=== PATIENT | female | born 1940 | race Caucasian/White ===

== ENCOUNTER → 2018-06-25 | Outpatient (CLI) | payer MEDICARE ==
[~2018-06-25] MED LIST: ALBUTEROL SULFATE 0.083% 2.5 MG/3 ML INH IH ONE; DEXAMETHASONE SOD PHOSPHATE 10MG/ML 1ML VIAL ONE; ESMOLOL HCL 10 MG/ML 10 ML VIAL ONE; FENTANYL CITRATE PF 50 MCG/1 ML 5ML AMP IV ONE; MIDAZOLAM HCL 1 MG/ML 2ML VIAL ONE; ONDANSETRON HCL MDV 20ML 2 MG/ML VIAL ONE; PROPOFOL 10 MG/ML 20ML VIAL IV ONE; ROCURONIUM 10MG/1ML SYR 10 MG/ML ML ONE
== END | disposition home or self-care (01) ==
LOC: RESP 10:26
PROVIDERS: ATTEND Internal Medicine Cardiovascular Disease
DX: R06.00 Dyspnea, unspecified (principal); G47.33 Obstructive sleep apnea (adult) (pediatric); R06.02 Shortness of breath
CPT/HCPCS: 94060; 94727; 94729; J1100; J2250; J2704; J3010; J3490

== ENCOUNTER → 2018-07-02 | Outpatient (CLI) | payer MEDICARE | END | disposition home or self-care (01) | LOC: SHCH 16:30 → EDUNIT# 16:30 | PROVIDERS: ATTEND Internal Medicine Cardiovascular Disease | DX: R06.00 Dyspnea, unspecified (principal); R94.31 Abnormal electrocardiogram [ECG] [EKG] | CPT/HCPCS: 93306 ==

== ENCOUNTER → 2018-07-07 | Outpatient (CLI) | payer MEDICARE ==
[~2018-07-07] MED LIST changes: -ALBUTEROL SULFATE 0.083% 2.5 MG/3 ML INH IH ONE; -DEXAMETHASONE SOD PHOSPHATE 10MG/ML 1ML VIAL ONE; -ESMOLOL HCL 10 MG/ML 10 ML VIAL ONE; -FENTANYL CITRATE PF 50 MCG/1 ML 5ML AMP IV ONE; -MIDAZOLAM HCL 1 MG/ML 2ML VIAL ONE; -ONDANSETRON HCL MDV 20ML 2 MG/ML VIAL ONE; -PROPOFOL 10 MG/ML 20ML VIAL IV ONE; +REGADENOSON 0.4 MG/5 ML PF SYG IVP SCH; -ROCURONIUM 10MG/1ML SYR 10 MG/ML ML ONE
== END | disposition home or self-care (01) ==
LOC: SHCH 08:26 → EDUNIT# 08:30
PROVIDERS: ATTEND Internal Medicine Cardiovascular Disease
DX: R94.31 Abnormal electrocardiogram [ECG] [EKG] (principal); R06.00 Dyspnea, unspecified
CPT/HCPCS: 78452; 93017; 96374; A9500 ×2; J2785

== ENCOUNTER → 2021-06-28 | Outpatient (CLI) | payer MEDICARE | END | disposition home or self-care (01) | LOC: RAH 12:28 | PROVIDERS: ATTEND Orthopaedic Surgery | DX: M17.11 Unilateral primary osteoarthritis, right knee (principal); M25.761 Osteophyte, right knee; M25.461 Effusion, right knee; M25.861 Other specified joint disorders, right knee | CPT/HCPCS: 73700 ==

== ENCOUNTER 2021-08-01 07:14 | Observation (INO) | payer MEDICARE ==
[2021-07-26 11:17] LABS: BASOPHILS % (AUTO) 1.6 % (0.0-5.0); EOSINOPHILS % (AUTO) 3.7 % (0.0-8.0); LYMPHOCYTES % (AUTO) 26.6 % (21.0-51.0); MEAN CORPUSCULAR HEMOGLOBIN 31.2 pg (27.0-33.0); MEAN CORPUSCULAR VOLUME 94.5 fL (79-99); MONOCYTES % (AUTO) 8.3 % (3.0-13.0); NEUTROPHILS % (AUTO) 59.6 % (40.0-77.0); PLATELET COUNT (AUTO) 190 K/uL (130-400); RED BLOOD CELL COUNT(AUTO) 4.87 MIL/uL (4.00-5.50); RED CELL DISTRIBUTION WIDTH 12.8 % (11.0-15.5); WHITE BLOOD COUNT (AUTO) 8.1 K/uL (4.8-10.8)
[2021-07-26 11:22] LABS: CREATININE 0.8 mg/dL (0.5-1.5); POTASSIUM 4.3 mmol/L (3.5-5.1)
[2021-07-26 11:46] LABS: PROTHROMBIN TIME 10.9 SEC (9.6-11.6)
[2021-07-26 11:47] LABS: PARTIAL THROMBOPLASTIN TIME 29.5 SEC (26.3-35.5)
[~2021-08-01] VITALS: Ht 160 cm; Wt 93.5 kg
[2021-08-01] VITALS (25 sets, daily range): BP systolic 100–164; BP diastolic 52–93
[~2021-08-01 07:14] MED LIST changes: +LISI5TAB21 PO; +METO25TA3 PO; +PANT20TA PO; +PARO-37 PO; -REGADENOSON 0.4 MG/5 ML PF SYG IVP SCH
[2021-08-01] MEDS ORDERED: CEFAZOLIN SODIUM 1 GM VIAL IVP ONE (08:00)
[2021-08-01] MEDS: LACTATED RINGERS 1000ML 1,000 ML IV SCH ×3 (08:45→14:01)
[2021-08-01] MEDS ORDERED: ONDANSETRON 4MG INJ IVP PRN (09:30)
[2021-08-01] MEDS: ACETAMINOPHEN 500 MG TABLET PO SCH ×3 (09:30→23:33)
[2021-08-01] MEDS ORDERED: HYDROCODONE/ACETAMINOPHEN 5/325 MG TAB PO PRN (09:30)
[2021-08-01] MEDS: 0.9%NACL 1000ML 1,000 ML IV SCH ×2 (09:30→19:30)
[2021-08-01] MEDS ORDERED: TRANEXAMIC ACID 1000MG/10ML ONE (09:55)
[2021-08-01] MEDS ORDERED: FENTANYL CITRATE PF 50 MCG/1 ML 2ML VIAL ONE ×3 (10:05→12:38)
[2021-08-01] MEDS ORDERED: MIDAZOLAM HCL 1 MG/ML 2ML VIAL ONE ×2 (10:05→10:31)
[2021-08-01] MEDS ORDERED: PROPOFOL 10 MG/ML 20ML VIAL IV ONE ×2 (10:05→12:38)
[2021-08-01] MEDS ORDERED: PROPOFOL 1000 MG/100 ML 100 ML IV ONE ×2 (10:15→11:43)
[2021-08-01] MEDS ORDERED: CEFAZOLIN SODIUM 2 GM VIAL IV ONE (10:40)
[2021-08-01] MEDS ORDERED: ROCURONIUM 10MG/1ML SYR 10 MG/ML ML ONE ×2 (10:41→11:29)
[2021-08-01] MEDS ORDERED: TRANEXAMIC ACID 1000MG/10ML TP ONE (11:11)
[2021-08-01] MEDS ORDERED: ONDANSETRON 4MG INJ ONE ×2 (11:28→11:29)
[2021-08-01] MEDS ORDERED: DEXAMETHASONE SOD PHOSPHATE 10MG/ML 1ML VIAL ONE (11:37)
[2021-08-01] MEDS ORDERED: ROPIVACAINE 0.5% 5MG/ML 30ML IJ ONE (11:37)
[2021-08-01] MEDS: TRAMADOL HCL 50 MG TABLET PO SCH ×3 (12:00→23:33)
[2021-08-01] MEDS ORDERED: GLYCOPYRROLATE 1 MG/5 ML SYRINGE ONE (12:32)
[2021-08-01] MEDS ORDERED: NEOSTIGMINE 5MG/5ML SYR IV ONE (12:32)
[2021-08-01] MEDS ORDERED: MEPERIDINE-PF 25 MG/ML SYG ONE (13:34)
[2021-08-01] MEDS: CEFAZOLIN SODIUM 1 GM VIAL IVP SCH ×2 (15:47→22:00)
[2021-08-01] MEDS ORDERED: CELECOXIB 200 MG CAP ONE (19:23)
[2021-08-01] MEDS: HYDROCODONE/ACETAMINOPHEN 10/325 MG TAB PO PRN (19:24)
[2021-08-01] MEDS: CELECOXIB 200 MG CAP PO SCH (19:24)
[2021-08-01] MEDS: MORPHINE 4 MG SYG IVP PRN (20:09)
[2021-08-01] MEDS ORDERED: ASPIRIN 81 MG EC TAB PO SCH (21:00)
[2021-08-02] VITALS: BP 117/58
[2021-08-02 04:00] VITALS: BP 128/53
[2021-08-02] MEDS: 0.9%NACL 1000ML 1,000 ML IV SCH (04:33)
[2021-08-02 04:36] LABS: HEMATOCRIT 39.5 % (36-48); MEAN CORPUSCULAR HGB CONC 33.9 g/dL (32.0-36.0); MEAN CORPUSCULAR VOLUME 91.4 fL (79-99); RED BLOOD CELL COUNT(AUTO) 4.32 MIL/uL (4.00-5.50); RED CELL DISTRIBUTION WIDTH 12.5 % (11.0-15.5); WHITE BLOOD COUNT (AUTO) 13.9 K/uL (4.8-10.8)
[2021-08-02 04:55] LABS: CREATININE 0.8 mg/dL (0.5-1.5); POTASSIUM 4.3 mmol/L (3.5-5.1)
[2021-08-02] MEDS: TRAMADOL HCL 50 MG TABLET PO SCH ×3 (05:18→23:47)
[2021-08-02 08:00] VITALS: BP 130/55
[2021-08-02] MEDS: LISINOPRIL 5 MG TABLET PO SCH (08:03)
[2021-08-02] MEDS: PANTOPRAZOLE 40 MG TAB DR PO SCH (08:03)
[2021-08-02] MEDS: PAROXETINE HCL 20 MG TABLET PO SCH (08:03)
[2021-08-02] MEDS: CELECOXIB 200 MG CAP PO SCH ×2 (08:03→19:53)
[2021-08-02] MEDS: METOPROLOL SUCCINATE 50 MG TAB.SR.24H PO SCH (08:04)
[2021-08-02] MEDS: POLYETHYLENE GLYCOL 3350 17 GM POWD.PACK PO SCH (08:05)
[2021-08-02] MEDS: ENOXAPARIN SODIUM 40 MG/0.4 ML SYRINGE SQ SCH (08:05)
[2021-08-02] MEDS: MORPHINE 4 MG SYG IVP PRN (08:11)
[2021-08-02] MEDS: ACETAMINOPHEN 500 MG TABLET PO SCH (09:45)
[2021-08-02 12:00] VITALS: BP 114/54
[2021-08-02] MEDS: HYDROCODONE/ACETAMINOPHEN 10/325 MG TAB PO PRN (14:36)
[2021-08-02 16:00] VITALS: BP 110/43
[2021-08-02 19:00] VITALS: BP 92/41
[2021-08-03] VITALS: BP 130/46
[2021-08-03] MEDS: ACETAMINOPHEN 500 MG TABLET PO SCH ×3 (01:21→17:23)
[2021-08-03 04:00] VITALS: BP 127/44
[2021-08-03] MEDS: TRAMADOL HCL 50 MG TABLET PO SCH ×4 (05:42→23:05)
[2021-08-03 08:00] VITALS: BP 135/59
[2021-08-03] MEDS: CELECOXIB 200 MG CAP PO SCH ×2 (09:25→19:25)
[2021-08-03] MEDS: LISINOPRIL 5 MG TABLET PO SCH (09:25)
[2021-08-03] MEDS: POLYETHYLENE GLYCOL 3350 17 GM POWD.PACK PO SCH (09:25)
[2021-08-03] MEDS: PANTOPRAZOLE 40 MG TAB DR PO SCH (09:25)
[2021-08-03] MEDS: METOPROLOL SUCCINATE 50 MG TAB.SR.24H PO SCH (09:25)
[2021-08-03] MEDS: PAROXETINE HCL 20 MG TABLET PO SCH (09:25)
[2021-08-03] MEDS: ENOXAPARIN SODIUM 40 MG/0.4 ML SYRINGE SQ SCH (09:27)
[2021-08-03 12:00] VITALS: BP 127/56
[2021-08-03 16:00] VITALS: BP 131/72
[2021-08-03 20:00] VITALS: BP 129/58
[2021-08-04 00:02] VITALS: BP 110/47
[2021-08-04] MEDS: ACETAMINOPHEN 500 MG TABLET PO SCH ×2 (01:24→08:32)
[2021-08-04 04:00] VITALS: BP 126/69
[2021-08-04] MEDS: PANTOPRAZOLE 40 MG TAB DR PO SCH (05:22)
[2021-08-04] MEDS: TRAMADOL HCL 50 MG TABLET PO SCH ×2 (05:22→11:41)
[2021-08-04 07:00] VITALS: BP 141/57
[2021-08-04] MEDS: METOPROLOL SUCCINATE 50 MG TAB.SR.24H PO SCH (08:27)
[2021-08-04] MEDS: CELECOXIB 200 MG CAP PO SCH (08:27)
[2021-08-04] MEDS: LISINOPRIL 5 MG TABLET PO SCH (08:27)
[2021-08-04] MEDS: PAROXETINE HCL 20 MG TABLET PO SCH (08:27)
[2021-08-04] MEDS: ENOXAPARIN SODIUM 40 MG/0.4 ML SYRINGE SQ SCH (08:28)
[2021-08-04] MEDS: POLYETHYLENE GLYCOL 3350 17 GM POWD.PACK PO SCH (08:30)
[2021-08-04] MEDS ORDERED: BISACODYL 10 MG SUPP.RECT RC PRN (09:30)
[2021-08-04 11:00] VITALS: BP 144/62
== END 2021-08-04 12:22 | disposition home health service (06) ==
LOC: DAH 07:14 → DAHIP 07:15 → 4CH 14:08
PROVIDERS: ADMIT Orthopaedic Surgery; ATTEND Orthopaedic Surgery
DX: M17.11 Unilateral primary osteoarthritis, right knee (principal); Z20.822 Contact with and (suspected) exposure to COVID-19; E66.9 Obesity, unspecified; R26.89 Other abnormalities of gait and mobility; Z86.718 Personal history of other venous thrombosis and embolism; Z98.49 Cataract extraction status, unspecified eye; Z79.899 Other long term (current) drug therapy; Z98.890 Other specified postprocedural states; Z90.710 Acquired absence of both cervix and uterus; Z79.82 Long term (current) use of aspirin; Z68.36 Body mass index [BMI] 36.0-36.9, adult
CPT/HCPCS: 27447; 36415 ×2; 64445; 64447; 76942; 80048 ×2; 85025; 85027; 85610; 85730; 87635; 87641; 93005; 93971; 96372 ×3; 96374; 96375 ×2; 96376 ×2; 97039 ×5; 97116 ×5; 97161; 97530 ×5; A4215; A4222; A4223; A4600; A4649 ×4; A4663; A5120; A6260; C1776; C9803; G0168; G0378 ×68; J0690 ×4; J1100; J1650 ×4; J2175; J2250 ×2; J2270 ×2; J2405 ×3; J2704 ×4; J2710; J2795; J3010 ×3; J3490 ×3; J7030; J7120

== ENCOUNTER 2021-09-05 14:54 | Inpatient (IN) | payer MEDICARE ==
[~2021-09-05] VITALS: Ht 172.7 cm; Wt 92.7 kg
[2021-09-05 15:37] LABS: APPEARANCE,URINE Cloudy (CLEAR); BILIRUBIN,URINE Negative (NEGATIVE); COLOR,URINE Yellow (YELLOW); GLUCOSE, URINE (UA) Negative (NEGATIVE); KETONES,URINE Negative (NEGATIVE); LEUKOCYTE ESTERASE ,URINE Large (NEGATIVE); NITRATE,URINE Negative (NEGATIVE); OCCULT BLOOD,URINE Negative (NEGATIVE); PH,URINE 7.5 (5.0-8.0); PROTEIN,URINE Trace mg/dL (NEGATIVE)
[2021-09-05 15:42] LABS: BASOPHILS % (AUTO) 0.5 % (0.0-5.0); HEMATOCRIT 42.2 % (36-48); LYMPHOCYTES % (AUTO) 13.1 % (21.0-51.0); MEAN CORPUSCULAR HEMOGLOBIN 30.3 pg (27.0-33.0); MEAN CORPUSCULAR VOLUME 94.8 fL (79-99); MONOCYTES % (AUTO) 7.4 % (3.0-13.0); NEUTROPHILS % (AUTO) 75.5 % (40.0-77.0); PLATELET COUNT (AUTO) 241 K/uL (130-400); RED BLOOD CELL COUNT(AUTO) 4.45 MIL/uL (4.00-5.50); RED CELL DISTRIBUTION WIDTH 13.7 % (11.0-15.5); WHITE BLOOD COUNT (AUTO) 14.9 K/uL (4.8-10.8)
[2021-09-05 15:56] LABS: INR 0.97 (0.85-1.15); PROTHROMBIN TIME 10.6 SEC (9.6-11.6)
[2021-09-05 16:00] LABS: BACTERIA,URINE Moderate /HPF (None Seen); RBC,URINE 0-1 /HPF (0-1); SQUAMOUS EPITHELIAL CELL,UR Rare /HPF (0-2)
[2021-09-05 16:08] LABS: ALBUMIN 3.2 g/dL (3.5-5.0); BILIRUBIN,TOTAL 0.6 mg/dL (0.2-1.0); TOTAL PROTEIN, SERUM 6.7 g/dL (6.0-8.3)
[2021-09-05] MEDS ORDERED: ZOSYN 3.375GM +NS 50ML IV ONE (17:00)
[2021-09-05] MEDS ORDERED: IOHEXOL-350 75 ML VIAL IV ONE (17:09)
[2021-09-05] MEDS ORDERED: HEPARIN 25,000 UNITS/250ML D5W 250 ML IV SCH ×2 (19:00)
[2021-09-05] MEDS ORDERED: ZOLPIDEM TARTRATE 5 MG TAB PO PRN (19:00)
[2021-09-05] MEDS ORDERED: MORPHINE 4 MG SYG IV PRN (19:00)
[2021-09-05] MEDS ORDERED: ACETAMINOPHEN 325 MG TAB PO PRN (19:00)
[2021-09-05] MEDS ORDERED: MORPHINE 2 MG SYG IVP ONE (19:00)
[2021-09-05] MEDS: HEPARIN 1,000 UNIT VIAL IVP SCH ×3 (19:00→19:52)
[2021-09-05] MEDS ORDERED: HEPARIN 5,000 UNIT VIAL SQ PRN (19:00)
[2021-09-05] MEDS ORDERED: ONDANSETRON 4MG INJ IVP ONE (19:00)
[2021-09-05] MEDS ORDERED: MORPHINE 2 MG SYG ONE (19:09)
[2021-09-05] MEDS ORDERED: ONDANSETRON 4MG INJ ONE (19:09)
[2021-09-05 19:19] LABS: BASOPHILS % (AUTO) 0.7 % (0.0-5.0); EOSINOPHILS % (AUTO) 2.4 % (0.0-8.0); HEMATOCRIT 38.8 % (36-48); LYMPHOCYTES % (AUTO) 13.5 % (21.0-51.0); MEAN CORPUSCULAR HEMOGLOBIN 30.6 pg (27.0-33.0); MEAN CORPUSCULAR HGB CONC 31.2 g/dL (32.0-36.0); MEAN CORPUSCULAR VOLUME 98.2 fL (79-99); MONOCYTES % (AUTO) 8.7 % (3.0-13.0); NEUTROPHILS % (AUTO) 74.2 % (40.0-77.0); PLATELET COUNT (AUTO) 203 K/uL (130-400); RED BLOOD CELL COUNT(AUTO) 3.95 MIL/uL (4.00-5.50); RED CELL DISTRIBUTION WIDTH 13.7 % (11.0-15.5); WHITE BLOOD COUNT (AUTO) 12.9 K/uL (4.8-10.8)
[2021-09-05] MEDS: CEFTRIAXONE 1G VIAL IVP SCH (22:00)
[2021-09-05] MEDS: OSELTAMIVIR PHOSPHATE 75 MG CAP PO SCH (22:02)
[2021-09-05 23:12] VITALS: BP 131/63
[2021-09-06] MEDS: MORPHINE 2 MG SYG IV PRN ×3 (01:39→15:02)
[2021-09-06 02:38] LABS: BASOPHILS % (AUTO) 0.6 % (0.0-5.0); EOSINOPHILS % (AUTO) 2.9 % (0.0-8.0); HEMATOCRIT 38.9 % (36-48); LYMPHOCYTES % (AUTO) 17.1 % (21.0-51.0); MEAN CORPUSCULAR HEMOGLOBIN 31.2 pg (27.0-33.0); MEAN CORPUSCULAR HGB CONC 32.1 g/dL (32.0-36.0); MONOCYTES % (AUTO) 10.5 % (3.0-13.0); NEUTROPHILS % (AUTO) 68.4 % (40.0-77.0); PLATELET COUNT (AUTO) 202 K/uL (130-400); RED BLOOD CELL COUNT(AUTO) 4.01 MIL/uL (4.00-5.50); RED CELL DISTRIBUTION WIDTH 13.8 % (11.0-15.5)
[2021-09-06 02:45] LABS: PROTHROMBIN TIME 10.9 SEC (9.6-11.6)
[2021-09-06 02:48] LABS: CREATININE 0.9 mg/dL (0.5-1.5); MAGNESIUM 1.8 mg/dL (1.80-2.40); PHOSPHORUS 3.2 mg/dL (2.5-4.9); POTASSIUM 4.1 mmol/L (3.5-5.1)
[2021-09-06 03:05] LABS: PARTIAL THROMBOPLASTIN TIME > 139.0 SEC (26.3-35.5)
[2021-09-06 03:26] VITALS: BP 120/72
[2021-09-06 07:00] VITALS: BP 153/71
[2021-09-06] MEDS: OSELTAMIVIR PHOSPHATE 75 MG CAP PO SCH ×2 (08:21→21:17)
[2021-09-06 08:33] LABS: INR 0.97 (0.85-1.15); PROTHROMBIN TIME 10.6 SEC (9.6-11.6)
[2021-09-06 08:35] LABS: PARTIAL THROMBOPLASTIN TIME 74.6 SEC (26.3-35.5)
[2021-09-06] MEDS ORDERED: FAMOTIDINE 20MG VIAL IV SCH (09:00)
[2021-09-06] MEDS ORDERED: MAGNESIUM 2GM PREMIX 50ML 50 ML IV PRN (09:00)
[2021-09-06 11:00] VITALS: BP 146/76
[2021-09-06] MEDS: HEPARIN 25,000 UNITS/250ML D5W 250 ML IV SCH (14:24)
[2021-09-06 14:26] LABS: INR 0.98 (0.85-1.15); PROTHROMBIN TIME 10.7 SEC (9.6-11.6)
[2021-09-06 14:27] LABS: PARTIAL THROMBOPLASTIN TIME 53.6 SEC (26.3-35.5)
[2021-09-06 15:00] VITALS: BP 159/72
[2021-09-06] MEDS ORDERED: LOSA50TA64 PO (15:42)
[2021-09-06] MEDS ORDERED: PARO40TA72 PO (15:42)
[2021-09-06] MEDS ORDERED: METO-408 PO (15:42)
[2021-09-06 19:34] VITALS: BP 147/62
[2021-09-06] MEDS: CEFTRIAXONE 1G VIAL IVP SCH (21:17)
[2021-09-06 23:13] VITALS: BP 138/61
[2021-09-07 03:53] VITALS: BP 131/66
[2021-09-07] MEDS ORDERED: ACETAMINOPHEN WITH CODEINE 1 TAB TAB PO PRN (07:00)
[2021-09-07 07:30] VITALS: BP 130/61
[2021-09-07] MEDS ORDERED: WARFARIN SODIUM 5 MG TAB PO SCH (08:36)
[2021-09-07] MEDS: OSELTAMIVIR PHOSPHATE 75 MG CAP PO SCH ×2 (09:36→21:13)
[2021-09-07] MEDS: FAMOTIDINE 20MG TAB PO SCH ×2 (09:36→21:13)
[2021-09-07] MEDS: ACETAMINOPHEN WITH CODEINE 1 TAB TAB PO PRN ×2 (09:37→19:55)
[2021-09-07 11:00] VITALS: BP 142/60
[2021-09-07] MEDS: HEPARIN 25,000 UNITS/250ML D5W 250 ML IV SCH (15:24)
[2021-09-07 16:00] VITALS: BP 152/85
[2021-09-07] MEDS ORDERED: WARFARIN SODIUM 2 MG TAB PO SCH (16:00)
[2021-09-07] MEDS: HEPARIN 1,000 UNIT VIAL IVP SCH (19:00)
[2021-09-07 20:14] VITALS: BP 158/74
[2021-09-07] MEDS: CEFTRIAXONE 1G VIAL IVP SCH (21:14)
[2021-09-07 23:40] VITALS: BP 144/65
[2021-09-08] MEDS: ACETAMINOPHEN WITH CODEINE 1 TAB TAB PO PRN ×2 (02:14→08:13)
[2021-09-08 03:49] VITALS: BP 140/62
[2021-09-08 05:55] LABS: EOSINOPHILS % (AUTO) 7.8 % (0.0-8.0); HEMATOCRIT 40.7 % (36-48); LYMPHOCYTES % (AUTO) 23.9 % (21.0-51.0); MEAN CORPUSCULAR HEMOGLOBIN 30.5 pg (27.0-33.0); MEAN CORPUSCULAR HGB CONC 32.2 g/dL (32.0-36.0); MEAN CORPUSCULAR VOLUME 94.7 fL (79-99); MONOCYTES % (AUTO) 11.9 % (3.0-13.0); NEUTROPHILS % (AUTO) 54.8 % (40.0-77.0); PLATELET COUNT (AUTO) 281 K/uL (130-400); RED CELL DISTRIBUTION WIDTH 13.2 % (11.0-15.5); WHITE BLOOD COUNT (AUTO) 6.8 K/uL (4.8-10.8)
[2021-09-08] MEDS: HEPARIN 1,000 UNIT VIAL IVP SCH (07:36)
[2021-09-08] MEDS: FAMOTIDINE 20MG TAB PO SCH ×2 (08:12→20:43)
[2021-09-08] MEDS: OSELTAMIVIR PHOSPHATE 75 MG CAP PO SCH ×2 (08:13→20:42)
[2021-09-08 08:18] VITALS: BP 132/74
[2021-09-08 08:35] LABS: PROTHROMBIN TIME 10.9 SEC (9.6-11.6)
[2021-09-08 08:36] LABS: PARTIAL THROMBOPLASTIN TIME 53.6 SEC (26.3-35.5)
[2021-09-08] MEDS ORDERED: OXYCODONE HCL 5 MG TAB PO PRN (09:30)
[2021-09-08] MEDS ORDERED: LACTULOSE 20 GM/30 ML UDCUP PO SCH (09:30)
[2021-09-08] MEDS: BISACODYL 5 MG TABLET.DR PO SCH ×2 (09:52→20:43)
[2021-09-08] MEDS: OXYCODONE HCL 5 MG TAB PO PRN ×3 (09:53→19:29)
[2021-09-08 11:38] VITALS: BP 143/79
[2021-09-08] MEDS ORDERED: WARFARIN SODIUM 2 MG TAB PO SCH (16:00)
[2021-09-08 16:30] VITALS: BP 139/52
[2021-09-08] MEDS: RIVAROXABAN 15 MG TABLET PO SCH ×2 (16:52→20:42)
[2021-09-08] MEDS: CEFTRIAXONE 1G VIAL IVP SCH (18:02)
[2021-09-08] MEDS: ONDANSETRON 4MG INJ IV PRN (18:06)
[2021-09-08 19:38] VITALS: BP 122/71
[2021-09-09 00:44] VITALS: BP 132/67
[2021-09-09 03:47] VITALS: BP 131/76
[2021-09-09] MEDS: OXYCODONE HCL 5 MG TAB PO PRN ×2 (04:12→08:51)
[2021-09-09] MEDS: ONDANSETRON 4MG INJ IV PRN ×2 (04:14→09:10)
[2021-09-09 05:43] LABS: BASOPHILS % (AUTO) 0.5 % (0.0-5.0); EOSINOPHILS % (AUTO) 4.3 % (0.0-8.0); HEMATOCRIT 37.8 % (36-48); LYMPHOCYTES % (AUTO) 11.9 % (21.0-51.0); MEAN CORPUSCULAR HGB CONC 33.3 g/dL (32.0-36.0); MEAN CORPUSCULAR VOLUME 92.9 fL (79-99); MONOCYTES % (AUTO) 10.9 % (3.0-13.0); NEUTROPHILS % (AUTO) 71.9 % (40.0-77.0); PLATELET COUNT (AUTO) 306 K/uL (130-400); RED BLOOD CELL COUNT(AUTO) 4.07 MIL/uL (4.00-5.50); RED CELL DISTRIBUTION WIDTH 13.2 % (11.0-15.5); WHITE BLOOD COUNT (AUTO) 9.7 K/uL (4.8-10.8)
[2021-09-09 07:54] VITALS: BP 126/64
[2021-09-09] MEDS: FAMOTIDINE 20MG TAB PO SCH (08:51)
[2021-09-09] MEDS: BISACODYL 5 MG TABLET.DR PO SCH (08:51)
[2021-09-09] MEDS: OSELTAMIVIR PHOSPHATE 75 MG CAP PO SCH (08:51)
[2021-09-09] MEDS: RIVAROXABAN 15 MG TABLET PO SCH (08:51)
[2021-09-09 09:18] LABS: INR 1.53 (0.85-1.15); PROTHROMBIN TIME 16.3 SEC (9.6-11.6)
[2021-09-09 09:20] LABS: PARTIAL THROMBOPLASTIN TIME 54.7 SEC (26.3-35.5)
[2021-09-09 11:56] VITALS: BP 122/75
[2021-09-09] MEDS ORDERED: RIVA15TA PO (14:04)
[2021-09-09] MEDS ORDERED: AMOX-426 PO (14:12)
== END 2021-09-09 16:07 | disposition home or self-care (01) | DRG 193 ==
LOC: EDH 14:54 → EDHIP 18:56 → 2DH 22:18 → 3AH 09-08 00:48
PROVIDERS: ADMIT Internal Medicine; ATTEND Internal Medicine
DX: J10.1 Influenza due to other identified influenza virus with other respiratory manifestations (principal); I26.99 Other pulmonary embolism without acute cor pulmonale; N39.0 Urinary tract infection, site not specified; Z20.822 Contact with and (suspected) exposure to COVID-19; M06.9 Rheumatoid arthritis, unspecified; E78.00 Pure hypercholesterolemia, unspecified; I10 Essential (primary) hypertension; I25.10 Atherosclerotic heart disease of native coronary artery without angina pectoris; Z90.710 Acquired absence of both cervix and uterus; G89.29 Other chronic pain; Z96.651 Presence of right artificial knee joint
CPT/HCPCS: 36415; 71045; 71275; 80048; 80053; 81001; 83735; 84100; 84484; 85025; 85378; 85610; 85730; 87077; 87088; 87186; 87635; 87804; 93005; 93970; 94760; 99291; C9803; G0378; J0696; J1644; J2405; J2543; J3475; J3490; Q9967

== ENCOUNTER → 2022-03-13 | Outpatient (CLI) | payer MEDICARE ==
[~2022-03-13] MED LIST changes: +AMOX-426 PO; -LISI5TAB21 PO; +LOSA50TA64 PO; +METO-408 PO; -METO25TA3 PO; -PARO-37 PO; +PARO40TA72 PO; +RIVA15TA PO
== END | disposition home or self-care (01) ==
LOC: RAH 10:26
PROVIDERS: ATTEND Family Medicine
DX: Z12.31 Encounter for screening mammogram for malignant neoplasm of breast (principal)
CPT/HCPCS: 77067

== ENCOUNTER → 2023-05-21 | Outpatient (CLI) | payer MEDICARE ==
[2023-05-21 12:15] LABS: BASOPHILS # (AUTO) 0.15 K/uL (0.00-0.20); BASOPHILS % (AUTO) 1.3 % (0.0-5.0); EOSINOPHILS # (AUTO) 0.07 K/uL (0.00-0.70); EOSINOPHILS % (AUTO) 0.6 % (0.0-8.0); HEMATOCRIT 50.1 % (36-48); IMMATURE GRANULOCYTE ABSOLUTE 0.09 K/uL (0-1); LYMPHOCYTES # (AUTO) 2.6 K/uL (1.0-4.8); MEAN CORPUSCULAR HEMOGLOBIN 31.5 pg (27.0-33.0); MEAN CORPUSCULAR HGB CONC 32.5 g/dL (32.0-36.0); MEAN CORPUSCULAR VOLUME 96.7 fL (79-99); MONOCYTES # (AUTO) 1.1 K/uL (0.1-1.0); MONOCYTES % (AUTO) 9.8 % (3.0-13.0); NEUTROPHILS # (AUTO) 7.2 K/uL (1.8-7.7); NEUTROPHILS % (AUTO) 64.5 % (40.0-77.0); PLATELET COUNT (AUTO) 351 K/uL (130-400); RED BLOOD CELL COUNT(AUTO) 5.18 MIL/uL (4.00-5.50); RED CELL DISTRIBUTION WIDTH 13.4 % (11.0-15.5); WHITE BLOOD COUNT (AUTO) 11.2 K/uL (4.8-10.8)
[2023-05-21 12:22] LABS: HEMOGLOBIN A1C 5.6 % (4.0-6.0)
[2023-05-21 12:44] LABS: BILIRUBIN,TOTAL 0.8 mg/dL (0.2-1.0); POTASSIUM 4.7 mmol/L (3.5-5.1); T4 (THYROXINE) 8.3 ug/dL (4.7-13.3); THYROID STIMULATING HORMONE 1.8 uIU/mL (0.36-3.74); TOTAL PROTEIN, SERUM 7.5 g/dL (6.0-8.3)
== END | disposition home or self-care (01) ==
LOC: LAB 10:36
PROVIDERS: ATTEND Internal Medicine Cardiovascular Disease
DX: R06.00 Dyspnea, unspecified (principal); I10 Essential (primary) hypertension; E78.5 Hyperlipidemia, unspecified; Z79.899 Other long term (current) drug therapy
CPT/HCPCS: 36415; 80053; 80061; 83036; 83880; 84436; 84443; 84479; 85025

== ENCOUNTER → 2023-06-15 | Outpatient (CLI) | payer MEDICARE | END | disposition home or self-care (01) | LOC: SHCH 08:29 | PROVIDERS: ATTEND Internal Medicine Cardiovascular Disease | DX: I35.8 Other nonrheumatic aortic valve disorders (principal); R06.00 Dyspnea, unspecified | CPT/HCPCS: 93306 ==

== ENCOUNTER 2023-08-05 06:49 | Day surgery (SDC) | payer MEDICARE ==
[2023-08-02 12:11] VITALS: BP 184/88; PULSE 64; RESP 19
[2023-08-02 12:16] LABS: BASOPHILS # (AUTO) 0.13 K/uL (0.00-0.20); BASOPHILS % (AUTO) 1.5 % (0.0-5.0); EOSINOPHILS # (AUTO) 0.22 K/uL (0.00-0.70); EOSINOPHILS % (AUTO) 2.5 % (0.0-8.0); HEMATOCRIT 48.7 % (36-48); IMMATURE GRANULOCYTE ABSOLUTE 0.04 K/uL (0-1); LYMPHOCYTES # (AUTO) 2.2 K/uL (1.0-4.8); LYMPHOCYTES % (AUTO) 25.3 % (21.0-51.0); MEAN CORPUSCULAR HEMOGLOBIN 31.6 pg (27.0-33.0); MEAN CORPUSCULAR HGB CONC 33.3 g/dL (32.0-36.0); MEAN CORPUSCULAR VOLUME 94.9 fL (79-99); MONOCYTES # (AUTO) 0.9 K/uL (0.1-1.0); MONOCYTES % (AUTO) 9.7 % (3.0-13.0); NEUTROPHILS # (AUTO) 5.3 K/uL (1.8-7.7); NEUTROPHILS % (AUTO) 60.5 % (40.0-77.0); PLATELET COUNT (AUTO) 315 K/uL (130-400); RED BLOOD CELL COUNT(AUTO) 5.13 MIL/uL (4.00-5.50); WHITE BLOOD COUNT (AUTO) 8.8 K/uL (4.8-10.8)
[2023-08-02 12:26] LABS: APPEARANCE,URINE CLEAR (CLEAR); BILIRUBIN,URINE NEGATIVE (NEGATIVE); COLOR,URINE YELLOW (YELLOW); GLUCOSE, URINE (UA) NEGATIVE (NEGATIVE); KETONES,URINE NEGATIVE (NEGATIVE); LEUKOCYTE ESTERASE ,URINE 75 Leu/uL (NEGATIVE); NITRATE,URINE NEGATIVE (NEGATIVE); OCCULT BLOOD,URINE NEGATIVE (NEGATIVE); PROTEIN,URINE NEGATIVE (NEGATIVE); UROBILINOGEN,URINE 0.2 mg/dL (0.2-1.0)
[2023-08-02 12:27] LABS: ADD UA MICROSCOPIC YES
[2023-08-02 12:44] LABS: B-TYPE NATRIURETIC PEPTIDE 25 pg/mL (0-100); CREATININE 0.9 mg/dL (0.5-1.0); POTASSIUM 4.3 mmol/L (3.5-5.1)
[2023-08-02 12:45] LABS: MUCUS,URINE RARE LPF (None Seen); RBC,URINE 0-1 /HPF (0-1); SQUAMOUS EPITHELIAL CELL,UR RARE /HPF (0-2)
[2023-08-02 12:46] LABS: INR <= 0.93 (0.85-1.15); PROTHROMBIN TIME 10.8 SEC (9.6-11.6)
[2023-08-02 12:47] LABS: PARTIAL THROMBOPLASTIN TIME 31.6 SEC (26.3-35.5)
[~2023-08-05] VITALS: Ht 160 cm; Wt 92.8 kg
[2023-08-05] VITALS (10 sets, daily range): BP systolic 103–148; BP diastolic 53–80; PULSE 54–76; RESP 11–19
[~2023-08-05 06:49] MED LIST changes: +AEC81 PO; +ALBU18HF7 IH; +ALPR0.25 PO; -AMOX-426 PO; +LISI10TA24 PO; +LORA10TA7 PO; -LOSA50TA64 PO; -RIVA15TA PO; +[UNRECOGNIZED DRUG - OTHER] OU
[2023-08-05] MEDS: 0.9%NACL 1000ML 1,000 ML IV ONE (07:25)
[2023-08-05] MEDS ORDERED: MEPERIDINE-PF 25 MG/ML SYG ONE ×3 (08:45→09:54)
[2023-08-05] MEDS ORDERED: LIDOCAINE HCL 400MG/20ML VIAL ONE (08:45)
[2023-08-05] MEDS ORDERED: IOHEXOL-350 50ML VIAL IV ONE (08:46)
[2023-08-05] MEDS ORDERED: IOHEXOL 350 MG/ML 100ML INFUS..BTL IV ONE (08:46)
[2023-08-05] MEDS ORDERED: HEPARIN 10,000 UNIT/10ML (1,000 UNIT/ML) VIAL ONE (08:46)
[2023-08-05] MEDS ORDERED: MIDAZOLAM HCL 1 MG/ML 2ML VIAL ONE ×3 (08:46→09:54)
[2023-08-05] MEDS ORDERED: NITROGLYCERIN 50MG VIAL ONE (08:46)
[2023-08-05] MEDS ORDERED: CLOPIDOGREL 300MG TAB ONE (10:05)
[2023-08-05] MEDS ORDERED: ASPIRIN 325MG EC TAB PO ONE (10:06)
[2023-08-05] MEDS: 0.9%NACL 1000ML 1,000 ML IV SCH (10:30)
== END 2023-08-05 14:30 | disposition home or self-care (01) ==
LOC: DAH 06:49
PROVIDERS: ATTEND Internal Medicine Cardiovascular Disease
DX: I25.119 Atherosclerotic heart disease of native coronary artery with unspecified angina pectoris (principal); I10 Essential (primary) hypertension; G47.33 Obstructive sleep apnea (adult) (pediatric); K21.9 Gastro-esophageal reflux disease without esophagitis; E78.5 Hyperlipidemia, unspecified; E66.9 Obesity, unspecified; I45.10 Unspecified right bundle-branch block; Z79.01 Long term (current) use of anticoagulants; Z79.899 Other long term (current) drug therapy; Z90.89 Acquired absence of other organs; Z98.890 Other specified postprocedural states; Z90.710 Acquired absence of both cervix and uterus; Z90.49 Acquired absence of other specified parts of digestive tract; Z79.82 Long term (current) use of aspirin; Z68.34 Body mass index [BMI] 34.0-34.9, adult
CPT/HCPCS: 80048; 83880; 85025; 85610; 85730; 87088; 81001; 36415; 71045; 93005; 93458; 93571; C9600; C1769 ×3; C1725; C1874; A4649; C1894; C1887; J3490 ×2; J7030; J1644 ×2; J2250 ×3; J2175 ×3; Q9967; A4615; A4215; A4222; A4221; A4663; A4216; A6206; A4606; Q9965 ×2; A4223 ×3; 96360; 96361; 99156; 99157